=== PATIENT | female | born 1990 | race African-American/Black ===

== ENCOUNTER 2018-10-10 16:42 | Emergency (ER) | payer SELFPAY ==
[2018-10-10] MEDS ORDERED: KETOROLAC 30 MG/ML INJ ONE (17:23)
[2018-10-10 17:46] LABS: Urine Blood 1+ (NEG); Urine Glucose NEGATIVE (NEG); Urine Protein NEGATIVE (NEG); Urine Specific Gravity 1.015 (1.005-1.030)
[2018-10-10] MEDS ORDERED: SIMETHICONE 80 MG TAB ONE (17:59)
[2018-10-10] MEDS ORDERED: MAGNESIUM CITRATE 300 ML BOT ONE (18:52)
[2018-10-10 19:13] LABS: Urine Bacteria 20-50 /HPF (<20); Urine Culture Reflex Order NOT NEEDED; Urine RBC <5 /HPF (NONE SEEN)
--- NOTE | 2018-10-10 19:16 | EDPHYS ---
Physician Documentation [facility] Name: Sherrill Spivey Age: 28 yrs Sex: Female : 1990 Arrival Date: 10/10/2018 Time: 16:45 Bed 13 Private MD: ED Physician Chilango Mack HPI: 10/10 18:29 This 28 yrs old Black Female presents to ER via Ambulatory with complaints of left snw flank pain and constipation. 18:29 The patient complains of pain in the left mid back. The patient complains of pain in snw the left flank. The pain does not radiate. Onset: The symptoms/episode began/occurred gradually, 1 week(s) ago, and became persistent. Associated signs and symptoms: Pertinent positives: lower abd/back pain. Severity of pain: At its worst the pain was moderate in the emergency department the pain is actually worse. The patient has not experienced similar symptoms in the past. The patient has not recently seen a physician. 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 - Social history:: Smoking status: Patient uses tobacco products, smokes one-half pack cigarettes per day. - Ebola Screening: : No symptoms or risks identified at this time. ROS: 18:28 Constitutional: Negative for fever, chills, and weight loss, Eyes: Negative for injury, snw pain, redness, and discharge, ENT: Negative for injury, pain, and discharge, Neck: Negative for injury, pain, and swelling, Cardiovascular: Negative for chest pain, palpitations, and edema, Respiratory: Negative for shortness of breath, cough, wheezing, and pleuritic chest pain, : Negative for injury, bleeding, discharge, and swelling, MS/Extremity: Negative for injury and deformity, Skin: Negative for injury, rash, and discoloration, Neuro: Negative for headache, weakness, numbness, tingling, and seizure. 18:28 Abdomen/GI: Positive for constipation, abdominal cramps, abdominal distension. 18:28 Back: Positive for flank pain, on the left. Exam: 18:17 Constitutional: This is a well developed, well nourished patient who is awake, alert, snw and in no acute distress. Head/Face: Normocephalic, atraumatic. Eyes: Pupils equal round and reactive to light, extra-ocular motions intact. Lids and lashes normal. Conjunctiva and sclera are non-icteric and not injected. Cornea within normal limits. Periorbital areas with no swelling, redness, or edema. ENT: Nares patent. No nasal discharge, no septal abnormalities noted. Tympanic membranes are normal and external auditory canals are clear. Oropharynx with no redness, swelling, or masses, exudates, or evidence of obstruction, uvula midline. Mucous membranes moist. Neck: Trachea midline, no thyromegaly or masses palpated, and no cervical lymphadenopathy. Supple, full range of motion without nuchal rigidity, or vertebral point tenderness. No Meningismus. Chest/axilla: Normal chest wall appearance and motion. Nontender with no deformity. No lesions are appreciated. Cardiovascular: Regular rate and rhythm with a normal S1 and S2. No gallops, murmurs, or rubs. Normal PMI, no JVD. No pulse deficits. Respiratory: Lungs have equal breath sounds bilaterally, clear to auscultation and percussion. No rales, rhonchi or wheezes noted. No increased work of breathing, no retractions or nasal flaring. Back: No spinal tenderness. No costovertebral tenderness. Full range of motion. Skin: Warm, dry with normal turgor. Normal color with no rashes, no lesions, and no evidence of cellulitis. MS/ Extremity: Pulses equal, no cyanosis. Neurovascular intact. Full, normal range of motion. Neuro: Awake and alert, GCS 15, oriented to person, place, time, and situation. Cranial nerves II-XII grossly intact. Motor strength 5/5 in all extremities. Sensory grossly intact. Cerebellar exam normal. Normal gait. 18:17 Abdomen/GI: Inspection: thin, Bowel sounds: normal, Palpation: left flank pain. Vital Signs: 16:47 BP 111 / 80; Pulse 81; Resp 16 S; Temp 98.0(TE); Pulse Ox 100% on R/A; Weight 49.9 kg aa5 (R); Height 5 ft. 5 in. (165.10 cm) (R); Pain 10/10; 18:01 BP 100 / 67; Pulse 82; Resp 18; Temp 98.8; Pulse Ox 100% on R/A; Pain 5/10; mg2 18:32 BP 104 / 72; Pulse 74; Resp 16; Temp 98.3; Pulse Ox 99% on R/A; Pain 4/10; ch 19:30 BP 102 / 72; Pulse 87; Resp 16; Pulse Ox 98% on R/A; jb4 16:47 Body Mass Index 18.30 (49.90 kg, 165.10 cm) aa5 MDM: 16:57 Patient medically screened. snw 19:18 Data reviewed: vital signs, nurses notes. Data interpreted: Pulse oximetry: on room air snw is 99 %. Interpretation: normal. 10/10 16:54 Order name: Urine Culture snw 10/10 16:54 Order name: Urine Microscopic Only; Complete Time: 19:17 snw 10/10 16:54 Order name: CT Stone Protocol snw 10/10 17:10 Order name: Urine Dipstick--Ancillary (enter results); Complete Time: 17:54 bd 10/10 17:10 Order name: Urine --Ancillary (enter results); Complete Time: 17:54 bd 10/10 16:54 Order name: Urine Test (obtain specimen); Complete Time: 17:08 snw 10/10 16:54 Order name: Urine Dipstick-Ancillary (obtain specimen); Complete Time: 17:08 snw Administered Medications: 17:11 Drug: TORadol 30 mg Route: IM; Site: left gluteus; mg2 17:37 Follow up: Response: No adverse reaction; Marked relief of symptoms mg2 17:37 CANCELLED (Duplicate Order): Simethicone 120 mg PO once snw 17:53 Drug: Simethicone 120 mg Route: PO; mg2 18:49 Follow up: Response: No adverse reaction ch 18:35 Drug: Magnesium Citrate Liquid 300 ml Route: PO; ch 19:36 Follow up: Response: No adverse reaction jb4 Disposition: 10/11 07:08 Co-signature as Attending Physician, Chilango Mack MD I agree with the assessment and ai plan of care. Disposition: 10/10/18 19:15 Discharged to Home. Impression: Constipation, Gas pain, Renal stone. - Condition is Stable. - Discharge Instructions: Abdominal Pain, Adult, Constipation, Adult, High-Fiber Diet, Kidney Stones, Dietary Guidelines to Help Prevent Kidney Stones, Rehydration, Adult. - Prescriptions for Dulcolax 10 mg Rectal Suppository - insert 1 suppository by RECTAL route every 6 hours As needed; 10 suppository. Miralax 17 gram/dose Oral - take 1 packet by ORAL route once daily dilute powder in 8 ounces of water or juice; 1 box. - Medication Reconciliation Form, Thank You Letter, Antibiotic Education, Prescription Opioid Use form. - Follow up: Emergency Department; When: As needed; Reason: Worsening of condition. Follow up: Private Physician; When: 2 - 3 days; Reason: Recheck today's complaints, Continuance of care, Re-evaluation by your physician. Signatures: Dispatcher [employer] EDLavern Patel, RN RN Chilango Torrez MD MD cha Therrien, Shelly, SERVICE OPERATIONS MANAGER-C SERVICE OPERATIONS MANAGER-Csnw Ellie De Paz RN RN aa5 Laith Nunes RN RN jb4 Hubert Johnson RN RN mg2 Corrections: (The following items were deleted from the chart) 10/10 17:37 17:37 Simethicone 120 mg PO once ordered. snw snw 19:36 19:15 10/10/2018 19:15 Discharged to Home. Impression: Constipation; Gas pain; Renal jb4 stone. Condition is Stable. Forms are Medication Reconciliation Form, Thank You Letter, Antibiotic Education, Prescription Opioid Use. Follow up: Emergency Department; When: As needed; Reason: Worsening of condition. Follow up: Private Physician; When: 2 - 3 days; Reason: Recheck today's complaints, Continuance of care, Re-evaluation by your physician. snw
--- NOTE | 2018-10-10 19:16 | ER ---
Nurse's Notes [facility] Name: Sherrill Spivey Age: 28 yrs Sex: Female : 1990 Arrival Date: 10/10/2018 Time: 16:45 Bed 13 Private MD: Diagnosis: Constipation;Gas pain;Renal stone Presentation: 10/10 16:46 Presenting complaint: Patient states: low back pain and lower abd pain that began 1 aa5 week ago. Pt states "I am constipated and I've been taking stool softeners and laxatives and it won't come out". Transition of care: patient was not received from another setting of care. Onset of symptoms was September 2018. Risk Assessment: Do you want to hurt yourself or someone else? Patient reports no desire to harm self or others. Initial Sepsis Screen: Does the patient meet any 2 criteria? No. Patient's initial sepsis screen is negative. Does the patient have a suspected source of infection? No. Patient's initial sepsis screen is negative. Care prior to arrival: None. 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 - Social history:: Smoking status: Patient uses tobacco products, smokes one-half pack cigarettes per day. - Ebola Screening: : No symptoms or risks identified at this time. Screenin:58 Abuse screen: Denies threats or abuse. Denies injuries from another. Nutritional mg2 screening: No deficits noted. Tuberculosis screening: No symptoms or risk factors identified. Fall Risk None identified. Assessment: 16:58 General: Appears uncomfortable, Behavior is crying. Pain: Complains of pain in back and mg2 abdomen Pain does not radiate. Pain currently is 8 out of 10 on a pain scale. Quality of pain is described as aching. Neuro: Level of Consciousness is awake, alert, obeys commands, Oriented to person, place, time, situation. Cardiovascular: Capillary refill < 3 seconds Patient's skin is warm and dry. Respiratory: Airway is patent Respiratory effort is even, unlabored, Respiratory pattern is regular, symmetrical. GI: Reports lower abdominal pain, upper abdominal pain. EENT: No signs and/or symptoms were reported regarding the EENT system. Derm: Skin is intact, is healthy with good turgor, Skin is pink, warm \\T\\ dry. normal. Musculoskeletal: Circulation, motion, and sensation intact. Capillary refill < 3 seconds. 18:01 Reassessment: Patient states feeling better. mg2 18:32 Reassessment: Patient appears in no apparent distress at this time. Patient and/or ch family updated on plan of care and expected duration. Pain level reassessed. Patient is alert, oriented x 3, equal unlabored respirations, skin warm/dry/pink. Patient states feeling better. Patient states symptoms have improved. Cardiovascular: Capillary refill < 3 seconds Patient's skin is warm and dry. Respiratory: Airway is patent Respiratory effort is even, unlabored. GI: Abdomen is flat, non-distended, Bowel sounds present X 4 quads. Abd is soft and non tender X 4 quads. Reports lower abdominal pain, upper abdominal pain. Derm: Skin is intact, Skin is dry, Skin is normal, Skin temperature is warm. Musculoskeletal: 19:10 Reassessment: Patient appears in no apparent distress at this time. Patient and/or jb4 family updated on plan of care and expected duration. Pain level reassessed. Patient is alert, oriented x 3, equal unlabored respirations, skin warm/dry/pink. Patient states feeling better. Vital Signs: 16:47 BP 111 / 80; Pulse 81; Resp 16 S; Temp 98.0(TE); Pulse Ox 100% on R/A; Weight 49.9 kg aa5 (R); Height 5 ft. 5 in. (165.10 cm) (R); Pain 10/10; 18:01 BP 100 / 67; Pulse 82; Resp 18; Temp 98.8; Pulse Ox 100% on R/A; Pain 5/10; mg2 18:32 BP 104 / 72; Pulse 74; Resp 16; Temp 98.3; Pulse Ox 99% on R/A; Pain 4/10; ch 19:30 BP 102 / 72; Pulse 87; Resp 16; Pulse Ox 98% on R/A; jb4 16:47 Body Mass Index 18.30 (49.90 kg, 165.10 cm) aa5 ED Course: 16:45 Patient arrived in ED. aa5 16:46 Arm band placed on. aa5 16:47 Triage completed. aa5 16:48 Hubert Johnson RN is Primary Nurse. mg2 16:52 [facility]C [facility] snw 16:52 Chilango Mack MD is Attending Physician. snw 17:00 Patient has correct armband on for positive identification. Door closed. Warm blanket mg2 given. 17:00 No provider procedures requiring assistance completed. mg2 17:02 Radiology exam delayed due to lab results not completed at this time. (BUN/Creatinine). nj 17:12 Patient did not have IV access during this emergency room visit. mg2 17:45 CT Stone Protocol In Process Unspecified. EDMS 18:32 No apparent distress. Resting quietly. ch 18:32 Pulse ox on. NIBP on. ch 18:48 Primary Nurse role handed off by Hubert Johnson RN ch 18:48 Lavern Graff RN is Primary Nurse. ch Administered Medications: 17:11 Drug: TORadol 30 mg Route: IM; Site: left gluteus; mg2 17:37 Follow up: Response: No adverse reaction; Marked relief of symptoms mg2 17:37 CANCELLED (Duplicate Order): Simethicone 120 mg PO once snw 17:53 Drug: Simethicone 120 mg Route: PO; mg2 18:49 Follow up: Response: No adverse reaction ch 18:35 Drug: Magnesium Citrate Liquid 300 ml Route: PO; ch 19:36 Follow up: Response: No adverse reaction jb4 Outcome: 19:15 Discharge ordered by . snw 19:35 Discharged to home ambulatory. jb4 19:35 Condition: stable 19:35 Discharge instructions given to patient, Instructed on discharge instructions, follow up and referral plans. medication usage, Demonstrated understanding of instructions, follow-up care, medications, Prescriptions given X 2. 19:36 Patient left the ED. jb4 Signatures: Dispatcher [employer] EDMS Lavern Graff, SANDY RN Mary Mendoza FNP-C FNP-Norrisw Ellie De Paz RN RN aa5 Laith Nunes RN RN jb4 Joe, Orlin nj Gardose, Hubert, RN RN mg2
--- NOTE | 2018-10-11 12:56 | RAD REPORT ---
EXAM DESCRIPTION: CT - Stone Protocol - 10/11/2018 11:36 am CLINICAL HISTORY: Abdominal pain. COMPARISON: None. TECHNIQUE: Computed axial tomography of the abdomen pelvis was obtained without oral or IV contrast. Lack of IV and oral contrast limits evaluation of solid organs, bowel, and vessels. Coronal reformat don images were obtained and reviewed. All CT scans are performed using dose optimization technique as appropriate and may include automated exposure control or mA/KV adjustment according to patient size. FINDINGS: A 6 millimeter calculus left kidney without hydronephrosis. A right renal calculus is not seen. . An ureteral calculus is not noted. A bladder calculus is not present. The liver, spleen, pancreas and adrenals appear grossly normal There is no evidence of diverticulitis. The rectum is distended with stool. Moderate amount of stool is present within the colon IMPRESSION: Nonobstructing left renal calculus. The rectum is distended with stool
== END 2018-10-10 19:36 | disposition home or self-care (01) ==
LOC: ER 16:42
DX: K59.00 Constipation, unspecified (principal); R14.1 Gas pain; N20.0 Calculus of kidney; F17.210 Nicotine dependence, cigarettes, uncomplicated
CPT/HCPCS: 74176; 76377; 81003; 81015; 81025; 87086; 87088; 96372; 99284